=== PATIENT | male | born 1995 | race Caucasian/White ===

== ENCOUNTER 2019-11-07 05:44 | Emergency (ER) | payer MEDICAID ==
[~2019-11-07] VITALS: Ht 180.3 cm; Wt 108.9 kg
[2019-11-07 07:04] VITALS: BP 135/95
== END 2019-11-07 08:38 | disposition home or self-care (01) ==
LOC: ED 05:44
DX: H60.91 Unspecified otitis externa, right ear (principal)
CPT/HCPCS: J1885

== ENCOUNTER 2020-08-19 18:56 | Emergency (ER) | payer SELFPAY ==
[~2020-08-19] VITALS: Ht 175.3 cm; Wt 108.9 kg
[2020-08-19 19:06] VITALS: Ht 175.3 cm; Wt 108.9 kg
[2020-08-19 21:29] LABS: BASOPHIL % 0.3 % (0-2); PLATELET COUNT 278 x10^3mcL (130-400)
[2020-08-19 21:41] LABS: CALCIUM 8.6 mg/dL (8.5-10.1); CARBON DIOXIDE 26.1 mmol/L (21-32); CHLORIDE SERUM 103 mmol/L (98-107); CREATININE SERUM 0.9 mg/dL (0.7-1.3); GFR1 > 60 mL/min; GLUCOSE SERUM 90 mg/dL (74-106); POTASSIUM SERUM 4.2 mmol/L (3.5-5.1); SODIUM SERUM 140 mmol/L (136-145)
[2020-08-19 21:48] LABS: ALBUMIN 4.1 g/dL (3.4-5.0); ALKALINE PHOSPHATASE 78 U/L (46-116); ALT/SGPT 36 U/L (16-63); AST/SGOT 20 U/L (15-37); BILIRUBIN TOTAL 0.43 mg/dL (0.20-1.00); TOTAL PROTEIN, SERUM 8.1 g/dL (6.4-8.2)
[2020-08-19 22:10] VITALS: BP 122/74
== END 2020-08-19 22:10 | disposition home or self-care (01) ==
LOC: ED 18:56
PROVIDERS: Emergency Medicine
DX: F41.0 Panic disorder [episodic paroxysmal anxiety] (principal); R03.0 Elevated blood-pressure reading, without diagnosis of hypertension